=== PATIENT | female | born 1980 | race Two or more races ===

== ENCOUNTER 2025-01-30 12:13 | Emergency (ER) | payer MEDICARE, OTHER ==
[~2025-01-30] VITALS: Ht 139.7 cm; Wt 38.6 kg
[2025-01-30 12:23] VITALS: TEMP 98.7
[2025-01-30] MEDS: FAMOTIDINE/PF INJ 20 MG/2 ML VIAL IV ONE (12:30)
[2025-01-30] MEDS: methylPREDNISolone SOD SUCC 125 MG/2ML VIAL IV ONE (12:30)
[2025-01-30] MEDS: diphenhydrAMINE HCL 50 MG/ML VIAL IV ONE (12:30)
[2025-01-30] MEDS: IV NS 0.9% 1,000 ML BAG IV ONE (12:30)
[2025-01-30 12:58] LABS: BASOPHILS # (AUTO) 0.1 K/uL (0.0-0.2); BASOPHILS % (AUTO) 1.5 % (0.0-2.0); EOSINOPHILS # (AUTO) 0.1 K/uL (0.0-0.7); EOSINOPHILS % (AUTO) 1.3 % (0.0-6.0); HEMATOCRIT 42 % (33-45); HEMOGLOBIN 14.2 g/dL (11.5-14.8); LYMPHOCYTES # (AUTO) 1.3 K/uL (0.8-4.8); LYMPHOCYTES % (AUTO) 19.8 % (20.0-44.0); MEAN CORPUSCULAR HEMOGLOBIN 28 PG (26.0-33.0); MEAN CORPUSCULAR HGB CONC 34 g/dl (31.0-36.0); MEAN CORPUSCULAR VOLUME 85 fL (82-100); MONOCYTES # (AUTO) 0.4 K/uL (0.1-1.30); MONOCYTES % (AUTO) 6.6 % (2.0-12.0); NEUTROPHILS # (AUTO) 4.5 K/uL (1.8-8.9); NEUTROPHILS % (AUTO) 70.8 % (43.0-81.0); PLATELET COUNT (AUTO) 177 K/uL (150-450); RED BLOOD CELL COUNT(AUTO) 4.99 MIL/uL (4.0-5.2); RED CELL DISTRIBUTION WIDTH 14.7 % (11.5-15.0); WHITE BLOOD COUNT (AUTO) 6.3 K/uL (4.3-11.0)
[2025-01-30 13:05] LABS: CALCIUM, SERUM 9.1 mg/dL (8.5-10.1); CREATININE 0.8 mg/dL (0.6-1.3); POTASSIUM 4.3 mmol/L (3.5-5.1)
[2025-01-30 13:17] LABS: APPEARANCE,URINE CLEAR (CLEAR); BILIRUBIN,URINE Negative (NEGATIVE); BLOOD, URINE Negative Ery/uL (NEGATIVE); COLOR,URINE YELLOW (YELLOW); KETONES,URINE Negative (NEGATIVE); LEUKOCYTE ESTERASE ,URINE Negative (NEGATIVE); PH,URINE 6.5 (5.0-8.0); PROTEIN,URINE Negative (NEGATIVE); UGLUCOSE 100 MG/DL mg/dL (NEGATIVE); UROBILINOGEN,URINE 0.2 EU/dL (0.2)
[2025-01-30 13:18] LABS: NITRITE, URINE NEGATIVE (NEGATIVE)
[2025-01-30 13:20] LABS: ADD URINE CULTURE NO; BACTERIA,URINE Rare /HPF (None Seen); SQUAMOUS EPITHELIAL CELL,UR Moderate /HPF (None Seen); WBC,URINE 0-2 /HPF (0-3)
[2025-01-30 13:36] LABS: VBG BASE EXCESS 2.5 mmol/L (-2.0-3.0); VBG COHb 0.1 % (0.5-1.5); VBG HCO3 28.4 mmol/L (22.0-29.0); VBG MetHb 0.3 % (0.5-1.5); VBG O2Hb 51.5 % (0-79); VBG OXYGEN SATURATION 51.7 % (60.0-85.0); VBG PCO2 48.4 mmHg (38.0-54.0); VBG PH 7.386 (7.320-7.430); VBG PO2 28.6 mmHg (23.0-48.0); VBG TOTAL HEMOGLOBIN 14.3 G/dL (12.0-16.0)
[2025-01-30 15:32] VITALS: BP 135/85; O2SAT 98
== END 2025-01-30 15:32 | disposition home or self-care (01) ==
LOC: ER 12:22
DX: E11.65 Type 2 diabetes mellitus with hyperglycemia (principal); Z86.69 Personal history of other diseases of the nervous system and sense organs
CPT/HCPCS: 36415; 80048-TC; 81001; 82010-TC; 82803-TC; 82962-TC; 85025-TC